=== PATIENT | male | born 1970 | race Caucasian/White ===

== ENCOUNTER 2018-09-25 13:33 | Day surgery (SDC) | payer MEDICAID, SELFPAY ==
[2018-09-25 13:58] VITALS: BP 137/98; PULSE 60; RESP 16; TEMP 35.9; O2SAT 100; BMI 37.3
--- NOTE | 2018-09-25 15:04 | RAD_ITS ---
STUDY: X-RAY - LUMBAR SPINE REASON FOR EXAM: Male, 47 years old. L5-S1 block. TECHNIQUE: Frontal and lateral fluoroscopic images of the lumbosacral spine obtained intraoperatively were submitted for interpretation. COMPARISON: None FINDINGS: Images saved placement of a spinal needle to the left of midline at the L5-S1 level with administration of radiodense contrast spreading in an epidural distribution. No significant lumbar degenerative features are evident. RAD/Spine 1 View Any Level IMPRESSION: L5-S1 left epidural injection. Please see operative report for additional details. Electronically Signed: Phillip Gastelum, at 16:50 EST Tel , Service support ,
[2018-09-25] MEDS: Triamcinolone Acetonide 40 MG/ML Vial (15:50)
[2018-09-25 15:59] VITALS: BP 124/72; BP 137/98; PULSE 70; RESP 16; TEMP 36.7; O2SAT 95
[2018-09-25 16:05] VITALS: BP 133/94; BP 137/98; PULSE 65; RESP 16; O2SAT 95
[2018-09-25 16:10] VITALS: BP 123/81; BP 137/98; PULSE 52; RESP 16; O2SAT 97
[2018-09-25 16:15] VITALS: BP 117/81; BP 137/98; PULSE 52; RESP 16; TEMP 36.6; O2SAT 98
[2018-09-25 16:34] VITALS: BP 137/98
== END 2018-09-25 16:48 | disposition home or self-care (01) ==
LOC: SDC 13:35 → AC 13:37
PROVIDERS: Family Provider Family Medicine; PCP Family Medicine; Referring Provider Anesthesiology Pain Medicine; Visit Provider Anesthesiology Pain Medicine
PROC: 3E0S3BZ Introduction of Anesthetic Agent into Epidural Space, Percutaneous Approach (ICD-10-PCS; CPT 62322; principal; 2018-09-25 14:40)
DX: M51.16 Intervertebral disc disorders with radiculopathy, lumbar region (principal); M54.5 Low back pain; M51.17 Intervertebral disc disorders with radiculopathy, lumbosacral region; F17.200 Nicotine dependence, unspecified, uncomplicated; F17.220 Nicotine dependence, chewing tobacco, uncomplicated; F41.9 Anxiety disorder, unspecified; E06.9 Thyroiditis, unspecified; R00.2 Palpitations; Z79.899 Other long term (current) drug therapy
CPT/HCPCS: 64483; 72020; J7120